=== PATIENT | female | born 1945 | race Hispanic/Latino ===

== ENCOUNTER → 2018-02-22 | Outpatient (CLI) | payer OTHER, MEDICARE | END | disposition home or self-care (01) | LOC: RAH 12:34 | PROVIDERS: ATTEND Internal Medicine | DX: M79.89 Other specified soft tissue disorders (principal) | CPT/HCPCS: 93971 ==

== ENCOUNTER → 2018-03-01 | Outpatient (CLI) | payer OTHER, MEDICARE | END | disposition home or self-care (01) | LOC: OIH 10:58 | PROVIDERS: ATTEND Internal Medicine | DX: M19.072 Primary osteoarthritis, left ankle and foot (principal); M79.89 Other specified soft tissue disorders | CPT/HCPCS: 73620 ==

== ENCOUNTER 2021-03-13 16:17 | Observation (INO) | payer OTHER, MEDICARE ==
[~2021-03-13] VITALS: Ht 154.9 cm; Wt 51.2 kg
[2021-03-13] MEDS ORDERED: PANTOPRAZOLE SODIUM 80 MG in SODIUM CHLORIDE 0.9% 100 ML IVP SCH (17:00)
[2021-03-13] MEDS ORDERED: ONDANSETRON HCL 4 MG/2 ML VIAL IVP PRN (17:00)
[2021-03-13] MEDS ORDERED: OCTREOTIDE ACETATE 1,250 MCG in SODIUM CHLORIDE 0.9% 250 ML IV SCH (17:00)
[2021-03-13 17:49] LABS: HEMATOCRIT 34.1 % (36-48); MEAN CORPUSCULAR HEMOGLOBIN 24.2 pg (27.0-33.0); MEAN CORPUSCULAR HGB CONC 30.2 g/dL (32.0-36.0); MEAN CORPUSCULAR VOLUME 80.2 fL (79-99); PLATELET COUNT (AUTO) 162 K/uL (130-400); RED BLOOD CELL COUNT(AUTO) 4.25 MIL/uL (4.00-5.50); WHITE BLOOD COUNT (AUTO) 6.2 K/uL (4.8-10.8)
[2021-03-13 18:00] LABS: CREATININE 0.9 mg/dL (0.5-1.5); INR 1.14 (0.85-1.15); POTASSIUM 4.2 mmol/L (3.5-5.1); PROTHROMBIN TIME 12.3 SEC (9.6-11.6)
[2021-03-13] MEDS ORDERED: ZOLPIDEM TARTRATE 5 MG TAB ONE (23:00)
[2021-03-14] VITALS (19 sets, daily range): BP systolic 139–175; BP diastolic 59–83
[2021-03-14] MEDS ORDERED: ATOR20TA65 PO (01:37)
[2021-03-14] MEDS ORDERED: LACT10SO5 PO (01:37)
[2021-03-14] MEDS ORDERED: PROP10TA10 PO (01:37)
[2021-03-14] MEDS ORDERED: PANT40TA54 PO (01:37)
[2021-03-14] MEDS ORDERED: FEXO1TAB8 PO (01:37)
[2021-03-14] MEDS ORDERED: ACET-66 PO (01:37)
[2021-03-14] MEDS ORDERED: FAMO20TA8 PO (01:37)
[2021-03-14] MEDS ORDERED: LOSA50TA64 PO (01:37)
[2021-03-14] MEDS ORDERED: FERR-72 PO (01:37)
[2021-03-14] MEDS ORDERED: DEXTROSE 50%-WATER 50 ML DISP.SYRIN IV PRN (04:30)
[2021-03-14] MEDS ORDERED: LABETALOL 20 MG/4 ML DISP.SYRIN IV PRN (04:30)
[2021-03-14] MEDS ORDERED: GLUCAGON 1MG KIT 1 MG ML IM PRN (04:30)
[2021-03-14 05:25] LABS: HEMATOCRIT 30.2 % (36-48); MEAN CORPUSCULAR HEMOGLOBIN 24.2 pg (27.0-33.0); MEAN CORPUSCULAR HGB CONC 30.5 g/dL (32.0-36.0); MEAN CORPUSCULAR VOLUME 79.5 fL (79-99); RED BLOOD CELL COUNT(AUTO) 3.8 MIL/uL (4.00-5.50); RED CELL DISTRIBUTION WIDTH 15.8 % (11.0-15.5); WHITE BLOOD COUNT (AUTO) 5.5 K/uL (4.8-10.8)
[2021-03-14 05:45] LABS: POTASSIUM 4.1 mmol/L (3.5-5.1)
[2021-03-14] MEDS: INSULIN HUMULIN R 100 UNIT/ML 3ML SQ SCH ×4 (05:54→21:10)
[2021-03-14] MEDS ORDERED: POTASSIUM CHLORIDE 20MEQ/100ML 100 ML IV PRN ×3 (09:00→22:00)
[2021-03-14] MEDS ORDERED: MAGNESIUM 2GM PREMIX 50ML 50 ML IV PRN (09:00)
[2021-03-14] MEDS ORDERED: LIDOCAINE HCL-MPF 1% 2ML VIAL IV PRN ×2 (09:00)
[2021-03-14] MEDS ORDERED: POTASSIUM CHLORIDE 20 MEQ ERTAB PO PRN (09:00)
[2021-03-14] MEDS ORDERED: POTASSIUM CHLORIDE 10% ELIXIR 20 MEQ/15 ML UDCUP PO PRN (09:00)
[2021-03-14] MEDS ORDERED: PROPOFOL 10 MG/ML 20ML VIAL IV ONE (14:18)
[2021-03-14] MEDS ORDERED: LIDOCAINE HCL 1% 20 ML VIAL ONE (14:18)
[2021-03-14] MEDS: ACETAMINOPHEN 325 MG TAB PO PRN (17:21)
[2021-03-15] MEDS: ACETAMINOPHEN 325 MG TAB PO PRN ×2 (02:24→08:34)
[2021-03-15 03:31] VITALS: BP 159/77
[2021-03-15 05:53] LABS: BASOPHILS % (AUTO) 0.4 % (0.0-5.0); EOSINOPHILS % (AUTO) 4.8 % (0.0-8.0); HEMATOCRIT 32.4 % (36-48); LYMPHOCYTES % (AUTO) 17.5 % (21.0-51.0); MEAN CORPUSCULAR HEMOGLOBIN 24.5 pg (27.0-33.0); MEAN CORPUSCULAR HGB CONC 31.2 g/dL (32.0-36.0); MEAN CORPUSCULAR VOLUME 78.6 fL (79-99); MONOCYTES % (AUTO) 9.4 % (3.0-13.0); NEUTROPHILS % (AUTO) 67.6 % (40.0-77.0); PLATELET COUNT (AUTO) 140 K/uL (130-400); RED BLOOD CELL COUNT(AUTO) 4.12 MIL/uL (4.00-5.50); RED CELL DISTRIBUTION WIDTH 15.8 % (11.0-15.5); WHITE BLOOD COUNT (AUTO) 6.9 K/uL (4.8-10.8)
[2021-03-15] MEDS: INSULIN HUMULIN R 100 UNIT/ML 3ML SQ SCH ×3 (06:01→16:23)
[2021-03-15 06:06] LABS: INR 1.22 (0.85-1.15); PROTHROMBIN TIME 13.1 SEC (9.6-11.6)
[2021-03-15 06:07] LABS: PARTIAL THROMBOPLASTIN TIME 30.5 SEC (26.3-35.5)
[2021-03-15 06:11] LABS: BILIRUBIN,TOTAL 1.2 mg/dL (0.2-1.0); POTASSIUM 3.7 mmol/L (3.5-5.1); TOTAL PROTEIN, SERUM 7.1 g/dL (6.0-8.3)
[2021-03-15 06:25] LABS: ALBUMIN 3.4 g/dL (3.5-5.0); CREATININE 0.9 mg/dL (0.5-1.5)
[2021-03-15 07:00] VITALS: BP 154/66
[2021-03-15] MEDS ORDERED: BACLOFEN 10 MG TABLET PO SCH (09:00)
[2021-03-15] MEDS ORDERED: PANTOPRAZOLE SODIUM 40 MG TABLET.DR PO SCH (09:00)
[2021-03-15 11:30] VITALS: BP 106/72
[2021-03-15 16:00] VITALS: BP 149/66
[2021-03-16 14:10] LABS: ALPHA-1-ANTITRYPSIN 154 mg/dL (101-187)
[2021-03-17 03:09] LABS: HEPATITIS B CORE IGM Negative (Negative); HEPATITIS Bs ANTIGEN SCREEN P Negative (Negative)
== END 2021-03-15 18:45 | disposition home or self-care (01) ==
LOC: EDH 16:17 → EDHIP 16:18 → 3BH 23:29
PROVIDERS: ADMIT Internal Medicine; ATTEND Internal Medicine
DX: K92.1 Melena (principal); Z20.822 Contact with and (suspected) exposure to COVID-19; K29.00 Acute gastritis without bleeding; I85.00 Esophageal varices without bleeding; K76.6 Portal hypertension; K31.89 Other diseases of stomach and duodenum; D62 Acute posthemorrhagic anemia; K74.60 Unspecified cirrhosis of liver; I10 Essential (primary) hypertension; E78.00 Pure hypercholesterolemia, unspecified; Z85.42 Personal history of malignant neoplasm of other parts of uterus; Z80.0 Family history of malignant neoplasm of digestive organs; Z90.49 Acquired absence of other specified parts of digestive tract; Z90.710 Acquired absence of both cervix and uterus; Z98.51 Tubal ligation status; Z79.899 Other long term (current) drug therapy; Z88.0 Allergy status to penicillin; Z88.1 Allergy status to other antibiotic agents; Z91.040 Latex allergy status; Z91.041 Radiographic dye allergy status; Z88.8 Allergy status to other drugs, medicaments and biological substances
CPT/HCPCS: 36415 ×3; 43244; 76700; 80048 ×2; 80053; 80061; 82103; 82105; 82140 ×2; 82150; 82390; 82728; 82948 ×7; 83516; 83540; 85025; 85027 ×2; 85610 ×2; 85730; 86038; 86255 ×4; 86705; 86706; 87340; 87426; 87902; 96374; 99284; A4215; A4222; A4223; A4510; A4606; A4620; C9113; G0378 ×48; J1815; J2354; J2405; J2704; J7030; J7050; U0003; 86215; 86235

== ENCOUNTER → 2021-06-10 | Outpatient (CLI) | payer OTHER, MEDICARE ==
[~2021-06-10] MED LIST: ATOR20TA65 PO; FAMO20TA8 PO; FERR-72 PO; FEXO1TAB8 PO; LACT10SO5 PO; LOSA50TA64 PO; PANT40TA54 PO; PROP10TA10 PO
== END | disposition home or self-care (01) ==
LOC: RAH 13:16
PROVIDERS: ATTEND Internal Medicine
DX: G31.9 Degenerative disease of nervous system, unspecified (principal); R25.9 Unspecified abnormal involuntary movements; I67.82 Cerebral ischemia
CPT/HCPCS: 70450

== ENCOUNTER 2024-02-29 13:51 | Emergency (ER) | payer OTHER, MEDICARE ==
[~2024-02-29] VITALS: Ht 154.9 cm; Wt 65.8 kg
[~2024-02-29 13:51] MED LIST changes: -ATOR20TA65 PO; +CEPH500B PO; +DOCU-116 PO; -FERR-72 PO; +FERS325 PO; +FEXO180T94 PO; -FEXO1TAB8 PO; +FLUT16H NS; +GABA-529 PO; +INSLAN SQ; -LACT10SO5 PO; +LOPE2TAB26 PO; +MECL-302 PO; +METH-662 PO; +MILK175T2 PO; +PANT40GR PO; -PANT40TA54 PO; +TRAM50TA4 PO
[2024-02-29 14:17] VITALS: BP 187/84; PULSE 93; RESP 16
[2024-02-29] MEDS: FAMOTIDINE 20MG VIAL IV ONE (15:17)
[2024-02-29] MEDS: LACTATED RINGERS 1000ML 1,000 ML IV ONE (15:18)
[2024-02-29] MEDS: MORPHINE 2 MG SYG IVP ONE (15:18)
[2024-02-29 15:19] LABS: APPEARANCE,URINE CLEAR (CLEAR); BILIRUBIN,URINE NEGATIVE (NEGATIVE); COLOR,URINE LIGHT-YELLOW (YELLOW); GLUCOSE, URINE (UA) NEGATIVE (NEGATIVE); KETONES,URINE NEGATIVE (NEGATIVE); LEUKOCYTE ESTERASE ,URINE NEGATIVE Leu/uL (NEGATIVE); NITRATE,URINE NEGATIVE (NEGATIVE); OCCULT BLOOD,URINE NEGATIVE (NEGATIVE); PROTEIN,URINE NEGATIVE (NEGATIVE); UROBILINOGEN,URINE 0.2 mg/dL (0.2-1.0)
[2024-02-29 15:24] LABS: ADD UA MICROSCOPIC YES
[2024-02-29 15:31] LABS: UNCLASSIFIED CRYSTAL 2 /HPF (None Seen); WBC,URINE 0-1 /HPF (0-1)
[2024-02-29 15:57] LABS: BASOPHILS # (AUTO) 0.03 K/uL (0.00-0.20); BASOPHILS % (AUTO) 0.5 % (0.0-5.0); EOSINOPHILS # (AUTO) 0.12 K/uL (0.00-0.70); EOSINOPHILS % (AUTO) 1.9 % (0.0-8.0); IMMATURE GRANULOCYTE ABSOLUTE 0.02 K/uL (0-1); LYMPHOCYTES % (AUTO) 15.2 % (21.0-51.0); MEAN CORPUSCULAR HEMOGLOBIN 27.2 pg (27.0-33.0); MEAN CORPUSCULAR HGB CONC 32.8 g/dL (32.0-36.0); MEAN CORPUSCULAR VOLUME 82.9 fL (79-99); MONOCYTES # (AUTO) 0.4 K/uL (0.1-1.0); MONOCYTES % (AUTO) 6.6 % (3.0-13.0); NEUTROPHILS # (AUTO) 4.7 K/uL (1.8-7.7); NEUTROPHILS % (AUTO) 75.5 % (40.0-77.0); PLATELET COUNT (AUTO) 173 K/uL (130-400); RED BLOOD CELL COUNT(AUTO) 4.34 MIL/uL (4.00-5.50); RED CELL DISTRIBUTION WIDTH 13.4 % (11.0-15.5); WHITE BLOOD COUNT (AUTO) 6.2 K/uL (4.8-10.8)
[2024-02-29 16:02] LABS: CREATININE 0.8 mg/dL (0.5-1.0)
[2024-02-29 16:06] LABS: ALBUMIN 3.6 g/dL (3.5-5.0); BILIRUBIN,TOTAL 0.7 mg/dL (0.2-1.0); TOTAL PROTEIN, SERUM 7.4 g/dL (6.0-8.3)
== END 2024-02-29 17:03 | disposition home or self-care (01) ==
LOC: EDH 13:51
DX: G89.18 Other acute postprocedural pain (principal); R10.9 Unspecified abdominal pain; E11.9 Type 2 diabetes mellitus without complications; I10 Essential (primary) hypertension; Z79.899 Other long term (current) drug therapy; Z88.1 Allergy status to other antibiotic agents; Z88.8 Allergy status to other drugs, medicaments and biological substances; Z91.040 Latex allergy status; Z91.041 Radiographic dye allergy status
CPT/HCPCS: 99284; 96374; 96375; 80053; 83690; 85025; 81001; 36415; 74018; J7120; J3490; J2270

== ENCOUNTER → 2024-08-02 | Outpatient (CLI) | payer OTHER, MEDICARE | END | disposition home or self-care (01) | LOC: RAH 10:09 | PROVIDERS: ATTEND Nurse Practitioner Family | DX: R16.1 Splenomegaly, not elsewhere classified (principal); K74.60 Unspecified cirrhosis of liver; Z90.49 Acquired absence of other specified parts of digestive tract | CPT/HCPCS: 76700 ==